=== PATIENT | male | born 1960 | race Caucasian/White ===

== ENCOUNTER 2024-08-24 07:53 | Outpatient (CLI) | payer BC, SELFPAY | END 2024-08-24 07:54 | disposition home or self-care (01) | LOC: ANHAUDIO 07:54 | PROVIDERS: PCP Nurse Practitioner; Visit Provider Otolaryngology | DX: H69.91 Unspecified Eustachian tube disorder, right ear (principal); H73.891 Other specified disorders of tympanic membrane, right ear | CPT/HCPCS: 92557; 92567 ==